=== PATIENT | male | born 2000 | race African-American/Black ===

== ENCOUNTER 2024-08-25 17:41 | Emergency (ER) | payer SELFPAY ==
[2024-08-25] MEDS: traMADol 50 MG Tab PO STA (19:31)
== END 2024-08-25 19:47 | disposition home or self-care (01) ==
LOC: MW.ED 17:41
DX: M25.562 Pain in left knee (principal); F17.210 Nicotine dependence, cigarettes, uncomplicated; Z75.8 Other problems related to medical facilities and other health care; X50.1XXA Overexertion from prolonged static or awkward postures, initial encounter; Y93.67 Activity, basketball
CPT/HCPCS: 73562; 99283; A9270